=== PATIENT | female | born 2000 | race Caucasian/White ===

== ENCOUNTER 2023-10-25 13:36 | Emergency (ER) | payer MEDICAID ==
[~2023-10-25] VITALS: Ht 175.3 cm; Wt 97.7 kg
[2023-10-25] MEDS ORDERED: SULF1TAB49 PO (15:34)
[2023-10-25] MEDS ORDERED: METR-159 PO (15:34)
[2023-10-25 15:42] VITALS: BP 122/80; PULSE 74; RESP 16; TEMP 97.8; O2SAT 98
[2023-10-25] MEDS ORDERED: HYDR-3965 PO (16:10)
== END 2023-10-25 16:27 | disposition home or self-care (01) ==
LOC: ER 13:36
DX: L05.01 Pilonidal cyst with abscess (principal); Z91.041 Radiographic dye allergy status; Z79.899 Other long term (current) drug therapy
CPT/HCPCS: 10080; 99283; J7030; J7120; A6407; A6449